=== PATIENT | male | born 1990 | race American Indian/Alaskan Native ===

== ENCOUNTER 2019-04-26 11:56 | Emergency (ER) | payer SELFPAY ==
[2019-04-26 13:17] VITALS: BP 153/83
--- NOTE | 2019-04-26 13:25 | Emergency Department Report ---
Chief Complaint: Abdominal Pain Stated Complaint: ABDOMINAL PAIN - HPI History of Present Illness: 29 y/o male that 1 shape pain Last few minutes this morning. No other complains or symptom. - ROS Review of Systems: sharp abd pain. Neg: n/v, f/c, diarrhea. constipation no dysuria, no blood from rectum. - Exam Vital Signs: Vital Signs 04/26/19 13:15 Temperature 98.2 F Pulse Rate 80 Respiratory 19 Rate Blood Pressure 153/83 [Left] O2 Sat by Pulse 100 Oximetry MSE screening note: Focused history and physical exam performed. Due to findings the following was ordered: Referral to [facility] ED Disposition for MSE Disposition: Z MED SCREENING EXAM-LEFT Is pt being admited?: No Does the pt Need Aspirin: No Condition: Stable Referrals: JOSE CHILEL MD [Primary Care Provider] - 3-5 Days
== END 2019-04-26 13:36 | disposition left against medical advice (07) ==
LOC: ED 11:56
DX: R10.9 Unspecified abdominal pain (principal); Z53.21 Procedure and treatment not carried out due to patient leaving prior to being seen by health care provider